=== PATIENT | female | born 1955 | race Caucasian/White ===

== ENCOUNTER → 2016-12-19 | Outpatient (CLI) | payer BC ==
--- NOTE | 2016-12-20 14:34 | MG ---
HISTORY: SCREENING Comparison: November 24, 2015 FINDINGS: Bilateral CC and MLO projections of the right and left breast were obtained. Scattered fibroglandul ar tissue is seen to be present without significant interval change. No suspicious architectural di stortion, mass or clustered microcalcifications can be observed to suggest malignancy. No skin thic kening or nipple retraction is appreciated. No pathological lymphadenopathy can be identified. Gilbert ign-appearing calcifications are noted within the right and left breast. IMPRESSION: NO RADIOGRAPHIC EVIDENCE OF MALIGNANCY. ACR CATEGORY 2 - benign findings. FOLLOW-UP EXAM 1 YEAR. Diagnostic CAD was utilized and reviewed. * 0 (ZERO) - ASSESSMENT INCOMPLETE; ADDITIONAL IMAGING IS NEEDED. * 1/ (ONE) - NEGATIVE. * 2/II (TWO) - BENIGN FINDINGS. * 3/III (THREE) - PROBABLY BENIGN FINDING; SHORT INTERVAL FOLLOW-UP SUGGESTED. * 4/IV (FOUR) - SUSPICIOUS ABNORMALITY; BIOPSY SHOULD BE CONSIDERED. * 5/V (FIVE) - HIGHLY SUSPICIOUS OF MALIGNANCY; BIOPSY SHOULD BE PERFORMED. A NEGATIVE X-RAY REPORT SHOULD NOT DELAY BIOPSY IF A DOMINANT OR CLINICALLY SUSPICIOUS MASS IS PRESENT; 4 TO 8 PERCENT OF CANCERS ARE NOT IDENTIFIED BY X-RAY. A NEG ATIVE REPORT MAY REINFORCE THE CLINICAL IMPRESSION. ADENOSIS AND DENSE BREASTS MAY OBSCURE AN UNDER LYING NEOPLASM. Reported By:
== END ==
LOC: RAD 10:32
PROVIDERS: ATTEND Nurse Practitioner Family
DX: Z00.00 Encounter for general adult medical examination without abnormal findings (principal); Z12.31 Encounter for screening mammogram for malignant neoplasm of breast
CPT/HCPCS: 77067

== ENCOUNTER 2025-02-10 10:55 | Inpatient (IN) ==
[2025-02-10 12:17] LABS: MEAN PLATELET VOLUME 8.4 fL (7.4-11.0); RED CELL DISTRIBUTION WIDTH 13.6 % (11.6-16.5)
[2025-02-10 12:46] LABS: COR CA(FOR HYPOALB) 9.7 mg/dL (8.5-10.1); COR NA(FOR HYPERGLY) 139.0 mmol/L (136-145); CREATININE 2.48 mg/dL (0.55-1.02); eGFR NON BLACK RACES 20.0 (>60)
[2025-02-10] MEDS: NS 500 ML IV 500 ML IV ONE ×2 (13:06→14:58)
--- NOTE | 2025-02-10 13:47 | DR.EXTPAIN ---
HPI Time seen Time Seen by Provider: 02/10/25 11:08 PCP Primary Care Physician: Mariola Whitney Complaint/Symptoms Chief Complaint Doctor Comments: Patient with 1 week of right breast cellulitis extending to the right axilla. Patient's PCP has tried clindamycin and Levaquin. At this time she is taking linezolid and it appears to be improving. Her blood pressure has been a little low. She has had some drainage from the area. Patient states the pain has resolved. Patient did have fever and chills previously. Chief Complaint:: Pt states that about a week ago she noticed redness and tenderness to the right axilla that extended to the right breast. Pt was seen by PCP on 02/03/25 and had the area drained and cultured. Pt was started on Gentamycin cream, Mupirocin ointment, Levaquin 500mg po daily x 10 days, and Linezolid 600mg po BID x 14 days. Despite taking these medications as prescribed the area remains red and does have moderate amount of drainage. Pt states that the pain that was previously in the area has resolved. Pt has had fever and chills. COVID-19 Coronavirus risk:travel/contact w/high risk person: No Has patient experienced Coronavirus symptoms: No Source History Provided: Patient Mode of arrival Mode of Arrival: Ambulatory Timing Onset of Chief Complaint: 02/03/25 PMH PMH Past Medical History: Yes Past Medical History: Dyslipidemia and Hypertension Past Surgical History: Yes Surgical History: and Hysterectomy Family History History of Family Medical Conditions: Yes Family Medical History: Diabetes Mellitus and Hypertension Social History Does patient currently use any type of tobacco product: No Have you used tobacco products in the last 12 months: No Type of Tobacco Use: None Does any household member use tobacco: No Alcohol Use: None Do you use any recreational Drugs:: No Lives With: Family Lives Where: Home Travel Risk Coronavirus risk:travel/contact w/high risk person: No Has patient experienced Coronavirus symptoms: No Infectious screening In the last 2 months have you had wt loss of >10#?: NO Have you had fever, night sweats or hemotysis?: No Have you traveled outside the country in the last 6 months?: No Isolation: Standard ROS Review of Systems Constitutional: See HPI and Fever Eyes: No Symptoms Reported ENTM: No Symptoms Reported Respiratoy: No Symptoms Reported; negative Short of Breath or Wheezing Cardiovascular: No Symptoms Reported; negative Chest Pain, Edema, Palpitations or Syncope Gastrointestinal/Abdominal: No Symptoms Reported Genitourinary: No Symptoms Reported Neurological: No Symptoms Reported Musculoskeletal: No Symptoms Reported Integumentary: See HPI Hematologic/Lymphatic: No Symptoms Reported Endocrine: No Symptoms Reported Psychiatric: No Symptoms Reported All Other Systems: Reviewed and Negative PE Vital Signs Vitals: Vital Signs Temperature 97.7 F Pulse Rate [Left Radial] 79 Pulse Rate [Left Radial] 80 Pulse Rate [Left Radial] 81 Pulse Rate [Left Radial] 89 Pulse Rate [Left Radial] 98 Pulse Rate 109 Respiratory Rate 20 Respiratory Rate 20 Respiratory Rate 16 Respiratory Rate 20 Respiratory Rate 20 Respiratory Rate 20 Blood Pressure [Left Arm] 95/52 Blood Pressure [Left Arm] 92/52 Blood Pressure [Left Arm] 90/51 Blood Pressure [Left Arm] 90/55 Blood Pressure [Left Arm] 125/56 Blood Pressure 85/50 Blood Pressure 99/69 O2 Sat by Pulse Oximetry 98 O2 Sat by Pulse Oximetry 99 O2 Sat by Pulse Oximetry 97 O2 Sat by Pulse Oximetry 97 O2 Sat by Pulse Oximetry 98 O2 Sat by Pulse Oximetry 94 General Limitations: No Limitations General Appearance: Alert and In No Apparent Distress Head Head Exam: Normal Inspection Eyes Eye exam: Normal Appearance ENT ENT Exam: Normal Exam Neck Neck Exam: Normal Inspection Chest Chest Inspection: Normal Inspection Respiratory Respiratory Exam: Normal Lung Sounds Bilat Cardiovascular Cardiovascular Exam: Regular Rate and Normal Rhythm Abdominal Exam Abdominal Exam: Normal Inspection, Normal Bowel Sounds and Soft Extremities Extremities Exam: Normal Inspection Back Back Exam: Normal Inspection Neurological Neurological Exam: Alert, Oriented X3 and CN II-XII Intact Psychiatric Psychiatric Exam: Normal Affect and Normal Mood Skin Skin Exam: Rash (Leyla of cellulitis on the right breast extending to the axilla. No fluctuant abscess palpated. Patient does have small amount of drainage. Area has been marked with marker and area appears to be receding slowly.) COURSE Treatment Treatment: Discussed results of workup with patient. She is agreeable to admission. Consultation Consultation Comments: Discussed case with Dr. Pettit and he is agreeable to admission. ROR Labs Reviewed Laboratory Results Reviewed?: Yes 02/10/25 11:56 02/10/25 11:56 Laboratory: WBC 11.3 X10^3/uL (3.6-10.0) H 02/10/25 11:56 RBC 4.43 X10^6/uL (3.5-5.4) 02/10/25 11:56 Hgb 12.6 g/dL (12.0-16.0) 02/10/25 11:56 Hct 38.3 % (36.0-47.0) 02/10/25 11:56 MCV 86.6 fL (80.0-100.0) 02/10/25 11:56 MCH 28.6 pg (27.0-34.0) 02/10/25 11:56 MCHC 33.0 g/dL (33.0-35.0) 02/10/25 11:56 RDW 13.6 % (11.6-16.5) 02/10/25 11:56 Plt Count 304 X10^3/uL (150.0-450.0) 02/10/25 11:56 MPV 8.4 fL (7.4-11.0) 02/10/25 11:56 Neut % (Auto) 84.5 % (42.0-75.0) H 02/10/25 11:56 Lymph % (Auto) 8.5 % (21.0-51.0) L 02/10/25 11:56 [place]kins % (Auto) 5.8 % (0.0-13.0) 02/10/25 11:56 Eos % (Auto) 0.6 % (0.9-2.9) L 02/10/25 11:56 Baso % (Auto) 0.6 % (0.2-1.0) 02/10/25 11:56 Neut # (Auto) 9.5 x10^3/uL (2.2-4.8) H 02/10/25 11:56 Lymph # (Auto) 1.0 X10^3/uL (1.3-2.9) L 02/10/25 11:56 [place]pkins # (Auto) 0.7 x10^3/uL (0.3-0.8) 02/10/25 11:56 Eos # (Auto) 0.1 x10^3/uL (0.0-0.2) 02/10/25 11:56 Baso # (Auto) 0.1 X10^3/uL (0.0-0.1) 02/10/25 11:56 Absolute Nucleated RBC 0.2 /100WBC 02/10/25 11:56 Sodium 138 mmol/L (136-145) 02/10/25 11:56 Corrected Sodium 139 mmol/L (136-145) 02/10/25 11:56 Potassium 3.8 mmol/L (3.5-5.1) 02/10/25 11:56 Chloride 97 mmol/L (98-107) L 02/10/25 11:56 Carbon Dioxide 28.2 mmol/L (21-32) 02/10/25 11:56 BUN 53 mg/dL (7-18) H 02/10/25 11:56 Creatinine 2.48 mg/dL (0.55-1.02) H 02/10/25 11:56 Est GFR (MDRD) Af Amer 25 (>60) L 02/10/25 11:56 Est GFR (MDRD) Non-Af 20 (>60) L 02/10/25 11:56 Glucose 124 mg/dL (65-99) H 02/10/25 11:56 Lactic Acid 1.7 mmol/L (0.4-2.0) 02/10/25 11:56 Calcium 9.1 mg/dL (8.5-10.1) 02/10/25 11:56 Corrected Calcium 9.7 mg/dL (8.5-10.1) 02/10/25 11:56 Total Bilirubin 0.30 mg/dL (0.2-1.0) 02/10/25 11:56 AST 32 Units/L (15-37) 02/10/25 11:56 ALT 28 Units/L (12-78) 02/10/25 11:56 Alkaline Phosphatase 63 Units/L (46-116) 02/10/25 11:56 Total Protein 7.5 g/dL (6.4-8.2) 02/10/25 11:56 Albumin 3.3 g/dL (3.4-5.0) L 02/10/25 11:56 Globulin 4.2 g/dL (2.5-4.5) 02/10/25 11:56 Albumin/Globulin Ratio 0.8 Ratio (1.1-2.1) L 02/10/25 11:56 Opioid Opioid Risk Tool Age (Isaac box if 16-45): No History of Preadolescent Sexual Abuse: No Total: 0 Total Score Risk Category: Low Risk Copyright: Parish HERNANDEZ predicting aberrant behaviors Discharge Plan Diagnosis Discharge Problem: Cellulitis of breast, Acute kidney injury Discharge Plan Patient Disposition: ADMITTED INPATIENT Condition: Stable Prescriptions: No Action mupirocin [Centany] 2 % ointment 1 applic topical TID MDD 4 10 Days Qty: 22 0RF Rx Instructions: Apply mupirocin and gentamicin ointment after warm compresses 4 times daily as directed with dry sterile dressing. linezolid 600 mg tablet 600 mg PO Q12H MDD 2 14 Days Qty: 28 0RF Rx Instructions: Encourage patient to continue probiotic and daily yogurt - x 14 days - started on 02/04/25 levofloxacin 500 mg tablet 500 mg PO Q24H MDD 1 10 Days Qty: 10 0RF Rx Instructions: x 10 days - started on 02/04/25 amlodipine-benazepril 5-20 mg capsule 1 cap PO QDAY MDD 1 90 Days Qty: 100 3RF Rx Instructions: Stop bottle for employee hydrochlorothiazide 12.5 mg tablet 12.5 mg PO QDAY MDD 1 90 Days Qty: 100 3RF Rx Instructions: Stop bottle per employee rosuvastatin 10 mg tablet 10 mg PO QDAY MDD 1 30 Days Qty: 100 2RF Rx Instructions: Stop bottle for employee gentamicin 0.1 % cream 1 applic TOPICAL BID Patient Comments: [NO ORIGINAL SIG] Rx Instructions: x 10 days - started on 02/03/25 Health Concerns: Post Hospitalization: new medications and changes needed to prevent readmission or further decline. Pt educated and given instructions on all concerns. Plan of Treatment: Continue with present treatment and follow up plan. Pt is to keep follow up appointment as instructed and take medications as ordered. Orders to Discharge Patient Discharge Orders: Transfer (Routine); Ordered 02/10/25 Ordered By: Jad Wiseman Follow ups/Referrals Follow ups/Referrals: KWADWO WHITNEY FNP [Primary Care Provider, MEDICAL] - 3 days Instructions Stand Alone Forms: Find Help Web Site, Post Hospital Follow Up Care Print Language: HEBREW
[2025-02-10] MEDS: ZYVOX 600MG IV 600 MG/300 ML BAG IV SCH (13:59)
[2025-02-10] MEDS ORDERED: CONSULT PHARMACY - POTASSIUM & MAGNESIUM XX SCH (14:50)
[2025-02-10] MEDS ORDERED: ULTRAM PO PRN (14:50)
[2025-02-10] MEDS ORDERED: TYLENOL 325 MG TAB PO PRN (14:50)
[2025-02-10] MEDS ORDERED: NORCO 5/325 MG TAB PO PRN (14:50)
[2025-02-10] MEDS: ZYVOX 600MG IV 600 MG/300 ML BAG IV ONE (14:58)
[2025-02-10] MEDS: NS 1,000 ML IV 1,000 ML IV SCH (15:37)
[2025-02-10] MEDS: BACTROBAN TOPICAL OINT TOP SCH (15:38)
[2025-02-10] MEDS: KLOR-CON 10 MEQ TAB PO NR (15:38)
[2025-02-10 16:08] VITALS: BMI 28.9
[2025-02-11 05:33] LABS: MEAN PLATELET VOLUME 8.2 fL (7.4-11.0); RED CELL DISTRIBUTION WIDTH 13.9 % (11.6-16.5)
[2025-02-11 05:47] LABS: COR CA(FOR HYPOALB) 9.4 mg/dL (8.5-10.1); CREATININE 1.79 mg/dL (0.55-1.02); eGFR NON BLACK RACES 30 (>60)
[2025-02-11] MEDS: CRESTOR TAB 10 MG PO SCH (08:31)
--- NOTE | 2025-02-11 09:33 | DR.H&P ---
H&P History & Physical for Day of: H&P Date: 02/11/25 Chief Complaint Chief Complaint: right breast cellulitis, poor oral intake History of Present Illness History of Present Illness: Ms. Whitney is a 69-year-old female with a past medical history of hypertension, hyperlipidemia who presented with generalized weakness and poor oral intake. She is being treated for right breast cellulitis outpatient with Levaquin and linezolid. She states the redness and swelling has improved. She denies nausea, vomiting or diarrhea. ER workup showed elevated creatinine and WBC. She was started on hydration and IV antibiotics. She is feeling better this morning. Right breast area has been marked and seems to be receding and improving. Labs/imaging reviewed: - WBC 11.7 hemoglobin 11.4 potassium 4.3 BUN 33 creatinine 1.79 - Blood cultures pending - Wound cultures: Coagulase positive staph Plan: Admit to [facility]. Continue IV linezolid. Follow-up pending cultures. Continue dressing change and wound care. Continue hydration. Encourage p.o. intake. Resume home medications. Replace electrolytes as per protocol. Continue pain control. Monitor a.m. labs and imaging. Time spent for clinical assessment, reviewing labs and imaging, physical exam, decision making and documentation greater than 45 minutes. Past Medical History Past Medical History: Dyslipidemia and Hypertension Past Surgical History Surgical History: and Hysterectomy Family History Family Medical History: Diabetes Mellitus, CA and Hypertension Social History Does patient currently use any type of tobacco product: No Have you used tobacco products in the last 12 months: No Type of Tobacco Use: None Does any household member use tobacco: No Alcohol Use: None Drug Use: None Medications Home Medications: Home Medications Medication Instructions Recorded Confirmed Type gentamicin 0.1 % topical cream 1 applic topical BID 02/10/25 History Allergies Allergies Allergy/AdvReac Type Severity Reaction Status Date / Time Penicillins Allergy Unknown Verified 02/10/25 11:23 Labs 02/11/25 05:21 02/11/25 05:21 Labs: 02/10/25 12:15 Axilla - Right Wound Gram Stain - Final 02/10/25 12:15 Axilla - Right Wound Culture - Preliminary Laboratory WBC 11.7 X10^3/uL (3.6-10.0) H 02/11/25 05:21 RBC 3.91 X10^6/uL (3.5-5.4) 02/11/25 05:21 Hgb 11.4 g/dL (12.0-16.0) L 02/11/25 05:21 Hct 34.0 % (36.0-47.0) L 02/11/25 05:21 MCV 86.9 fL (80.0-100.0) 02/11/25 05:21 MCH 29.2 pg (27.0-34.0) 02/11/25 05:21 MCHC 33.7 g/dL (33.0-35.0) 02/11/25 05:21 RDW 13.9 % (11.6-16.5) 02/11/25 05:21 Plt Count 263 X10^3/uL (150.0-450.0) 02/11/25 05:21 MPV 8.2 fL (7.4-11.0) 02/11/25 05:21 Neut % (Auto) 79.7 % (42.0-75.0) H 02/11/25 05:21 Lymph % (Auto) 12.0 % (21.0-51.0) L 02/11/25 05:21 [place] % (Auto) 5.7 % (0.0-13.0) 02/11/25 05:21 Eos % (Auto) 1.8 % (0.9-2.9) 02/11/25 05:21 Baso % (Auto) 0.8 % (0.2-1.0) 02/11/25 05:21 Neut # (Auto) 9.3 x10^3/uL (2.2-4.8) H 02/11/25 05:21 Lymph # (Auto) 1.4 X10^3/uL (1.3-2.9) 02/11/25 05:21 [place] # (Auto) 0.7 x10^3/uL (0.3-0.8) 02/11/25 05:21 Eos # (Auto) 0.2 x10^3/uL (0.0-0.2) 02/11/25 05:21 Baso # (Auto) 0.1 X10^3/uL (0.0-0.1) 02/11/25 05:21 Absolute Nucleated RBC 0.3 /100WBC 02/11/25 05:21 Sodium 139 mmol/L (136-145) 02/11/25 05:21 Corrected Sodium TNP 02/11/25 05:21 Potassium 4.3 mmol/L (3.5-5.1) 02/11/25 05:21 Chloride 104 mmol/L (98-107) 02/11/25 05:21 Carbon Dioxide 29.6 mmol/L (21-32) 02/11/25 05:21 BUN 33 mg/dL (7-18) H 02/11/25 05:21 Creatinine 1.79 mg/dL (0.55-1.02) H 02/11/25 05:21 Est GFR (MDRD) Af Amer 36 (>60) L 02/11/25 05:21 Est GFR (MDRD) Non-Af 30 (>60) L 02/11/25 05:21 Glucose 100 mg/dL (65-99) H 02/11/25 05:21 Lactic Acid 1.7 mmol/L (0.4-2.0) 02/10/25 11:56 Calcium 8.3 mg/dL (8.5-10.1) L 02/11/25 05:21 Corrected Calcium 9.4 mg/dL (8.5-10.1) 02/11/25 05:21 Magnesium 2.2 mg/dL (2.0-2.9) 02/11/25 05:21 Total Bilirubin 0.20 mg/dL (0.2-1.0) 02/11/25 05:21 AST 26 Units/L (15-37) 02/11/25 05:21 ALT 24 Units/L (12-78) 02/11/25 05:21 Alkaline Phosphatase 53 Units/L (46-116) 02/11/25 05:21 Total Protein 6.2 g/dL (6.4-8.2) L 02/11/25 05:21 Albumin 2.6 g/dL (3.4-5.0) L 02/11/25 05:21 Globulin 3.6 g/dL (2.5-4.5) 02/11/25 05:21 Albumin/Globulin Ratio 0.7 Ratio (1.1-2.1) L 02/11/25 05:21 Review of Systems Constitutional: Weakness Eyes: No Symptoms Reported ENT: No Symptoms Reported Respiratory: No Symptoms Reported Cardiovascular: No Symptoms Reported Gastrointestinal: No Symptoms Reported Genitourinary: No Symptoms Reported Musculoskeletal: Arm Pain Skin: Wound Neurological: No Symptoms Reported Physical Exam Vital Signs: Vital Signs Temperature 97.2 F Temperature 97.7 F Pulse Rate [Left Radial] 79 Pulse Rate [Left Radial] 72 Respiratory Rate 18 Respiratory Rate 18 Blood Pressure [Left Arm] 97/55 Blood Pressure [Left Arm] 108/57 O2 Sat by Pulse Oximetry 97 O2 Sat by Pulse Oximetry 96 Oriented: Normal Throat: Normal Respiratory: Clear Throughout Cardiovascular: Normal Auscultation: Bowel Sounds: Normal Palpation: Normal Tenderness: Normal Skin: Red, Tender, Hot, Wound and Other (Right breast area, erythema improving.) Musculoskeletal: Normal Psychiatric: Normal Mood Description: Calm Affect: Normal Speech Pattern: Clear and Appropriate Assessment/Plan (1) Acute kidney injury: Status: Acute (2) Cellulitis of breast: Status: Acute (3) Abscess of right breast: Status: Acute (4) Hyperlipidemia: Qualifiers: Hyperlipidemia type: mixed hyperlipidemia Qualified Code(s): E78.2 - Mixed hyperlipidemia Status: Chronic (5) Essential hypertension with goal blood pressure less than 130/80: Status: Chronic (6) Mild anemia: Status: None Review H&P Reviewed: Yes Patient was examined?: Yes
[2025-02-12 06:02] LABS: MEAN PLATELET VOLUME 8.3 fL (7.4-11.0); RED CELL DISTRIBUTION WIDTH 13.8 % (11.6-16.5)
[2025-02-12 06:10] LABS: COR CA(FOR HYPOALB) 9.2 mg/dL (8.5-10.1); CREATININE 1.28 mg/dL (0.55-1.02); eGFR NON BLACK RACES 44 (>60)
[2025-02-12 10:48] VITALS: BP 114/59; PULSE 72; RESP 18; TEMP 97.7; O2SAT 96
--- NOTE | 2025-02-14 13:15 | W.DIS.FURT ---
Summary of Discharge Discharge Summary of Date Date of Exam: 02/12/25 Admission Date Date of Admission: 02/10/25 Admission Diagnosis Patient Problems (Updated 02/11/25 @ 09:32 by Betzaida Camarillo MD) Acute kidney injury (Acute) N17.9 Cellulitis of breast (Acute) N61.0 Hospital Course: Ms. Montano is a 69-year-old female with a past medical history of hypertension, hyperlipidemia who presented with generalized weakness and poor oral intake. She is being treated for right breast cellulitis outpatient with Levaquin and linezolid. She states the redness and swelling has improved. She denies nausea, vomiting or diarrhea. ER workup showed elevated creatinine and WBC. She was started on hydration and IV antibiotics. She is feeling better this morning. Right breast area has been marked and seems to be receding and improving. Labs are monitored daily and electrolytes replaced as needed. Wound cultures were collected which showed MRSA. She remained on IV linezolid. Her renal function normalized and she was feeling better. She was tolerating p.o. intake and ambulating in the room. She was stable for discharge home on p.o. linezolid which she already has at home. She will follow-up with PCP as scheduled. Vital Signs: Vital Signs (72 hours) 02/10/25 10:05 02/10/25 11:10 02/10/25 11:22 Temperature 97.7 F Pulse Rate 109 H Pulse Rate [Left Radial] 98 H Respiratory Rate 20 20 Blood Pressure 99/69 85/50 Blood Pressure [Left Arm] 125/56 O2 Sat by Pulse Oximetry 94 L 98 Oxygen Delivery Method Room Air Room Air 02/10/25 11:30 02/10/25 12:04 02/10/25 12:18 Temperature Pulse Rate Pulse Rate [Left Radial] 89 81 80 Respiratory Rate 20 16 20 Blood Pressure Blood Pressure [Left Arm] 90/55 90/51 92/52 O2 Sat by Pulse Oximetry 97 97 99 Oxygen Delivery Method Room Air Room Air Room Air 02/10/25 12:30 02/10/25 12:39 02/10/25 12:45 Temperature Pulse Rate 78 Pulse Rate [Left Radial] 79 Respiratory Rate 20 47 H Blood Pressure 95/52 Blood Pressure [Left Arm] 95/52 O2 Sat by Pulse Oximetry 98 98 Oxygen Delivery Method Room Air 02/10/25 12:45 02/10/25 13:00 02/10/25 13:00 Temperature Pulse Rate 77 Pulse Rate [Left Radial] Respiratory Rate 24 Blood Pressure 89/54 89/54 Blood Pressure [Left Arm] O2 Sat by Pulse Oximetry 97 Oxygen Delivery Method 02/10/25 13:00 02/10/25 13:15 02/10/25 13:15 Temperature Pulse Rate 75 75 Pulse Rate [Left Radial] Respiratory Rate 18 14 Blood Pressure 89/51 Blood Pressure [Left Arm] O2 Sat by Pulse Oximetry 98 99 Oxygen Delivery Method 02/10/25 13:30 02/10/25 13:30 02/10/25 13:45 Temperature Pulse Rate 73 Pulse Rate [Left Radial] Respiratory Rate 14 Blood Pressure 90/50 95/50 Blood Pressure [Left Arm] O2 Sat by Pulse Oximetry 98 Oxygen Delivery Method 02/10/25 13:45 02/10/25 14:00 02/10/25 14:00 Temperature Pulse Rate 76 74 Pulse Rate [Left Radial] Respiratory Rate 18 16 Blood Pressure 96/54 Blood Pressure [Left Arm] O2 Sat by Pulse Oximetry 99 99 Oxygen Delivery Method 02/10/25 14:15 02/10/25 16:00 02/10/25 19:00 Temperature 97.5 F L Pulse Rate Pulse Rate [Left Radial] 91 H Respiratory Rate 16 Blood Pressure Blood Pressure [Left Arm] 93/53 O2 Sat by Pulse Oximetry 98 Oxygen Delivery Method Room Air Room Air Room Air 02/10/25 20:00 02/10/25 23:47 02/11/25 04:00 Temperature 97.6 F 97.7 F 97.7 F Pulse Rate Pulse Rate [Left Radial] 72 73 72 Respiratory Rate 17 18 18 Blood Pressure Blood Pressure [Left Arm] 98/63 102/57 108/57 O2 Sat by Pulse Oximetry 97 98 96 Oxygen Delivery Method Room Air Room Air Room Air 02/11/25 07:00 02/11/25 08:00 02/11/25 12:00 Temperature 97.2 F L 97.9 F Pulse Rate Pulse Rate [Left Radial] 79 72 Respiratory Rate 18 20 Blood Pressure Blood Pressure [Left Arm] 97/55 99/55 O2 Sat by Pulse Oximetry 97 98 Oxygen Delivery Method Room Air Room Air Room Air 02/11/25 16:00 02/11/25 19:00 02/11/25 20:00 Temperature 98.2 F 98.0 F Pulse Rate Pulse Rate [Left Radial] 75 75 Respiratory Rate 20 19 Blood Pressure Blood Pressure [Left Arm] 99/57 111/57 O2 Sat by Pulse Oximetry 98 96 Oxygen Delivery Method Room Air Room Air Room Air 02/12/25 00:00 02/12/25 04:00 Temperature 97.8 F 97.5 F L Pulse Rate Pulse Rate [Left Radial] 80 71 Respiratory Rate 19 19 Blood Pressure Blood Pressure [Left Arm] 116/63 117/63 O2 Sat by Pulse Oximetry 96 95 Oxygen Delivery Method Room Air Room Air Labs: Laboratory Last Values WBC 9.5 X10^3/uL (3.6-10.0) 02/12/25 05:28 RBC 3.79 X10^6/uL (3.5-5.4) 02/12/25 05:28 Hgb 11.3 g/dL (12.0-16.0) L 02/12/25 05:28 Hct 33.0 % (36.0-47.0) L 02/12/25 05:28 MCV 87.1 fL (80.0-100.0) 02/12/25 05:28 MCH 29.9 pg (27.0-34.0) 02/12/25 05:28 MCHC 34.3 g/dL (33.0-35.0) 02/12/25 05:28 RDW 13.8 % (11.6-16.5) 02/12/25 05:28 Plt Count 240 X10^3/uL (150.0-450.0) 02/12/25 05:28 MPV 8.3 fL (7.4-11.0) 02/12/25 05:28 Neut % (Auto) 77.3 % (42.0-75.0) H 02/12/25 05:28 Lymph % (Auto) 14.0 % (21.0-51.0) L 02/12/25 05:28 [place] % (Auto) 5.2 % (0.0-13.0) 02/12/25 05:28 Eos % (Auto) 2.6 % (0.9-2.9) 02/12/25 05:28 Baso % (Auto) 0.9 % (0.2-1.0) 02/12/25 05:28 Neut # (Auto) 7.4 x10^3/uL (2.2-4.8) H 02/12/25 05:28 Lymph # (Auto) 1.3 X10^3/uL (1.3-2.9) 02/12/25 05:28 [place] # (Auto) 0.5 x10^3/uL (0.3-0.8) 02/12/25 05:28 Eos # (Auto) 0.3 x10^3/uL (0.0-0.2) H 02/12/25 05:28 Baso # (Auto) 0.1 X10^3/uL (0.0-0.1) 02/12/25 05:28 Absolute Nucleated RBC 0.0 /100WBC 02/12/25 05:28 Sodium 141 mmol/L (136-145) 02/12/25 05:28 Corrected Sodium TNP 02/12/25 05:28 Potassium 4.4 mmol/L (3.5-5.1) 02/12/25 05:28 Chloride 105 mmol/L (98-107) 02/12/25 05:28 Carbon Dioxide 27.1 mmol/L (21-32) 02/12/25 05:28 BUN 19 mg/dL (7-18) H 02/12/25 05:28 Creatinine 1.28 mg/dL (0.55-1.02) H 02/12/25 05:28 Est GFR (MDRD) Af Amer 53 (>60) L 02/12/25 05:28 Est GFR (MDRD) Non-Af 44 (>60) L 02/12/25 05:28 Glucose 87 mg/dL (65-99) 02/12/25 05:28 Lactic Acid 1.7 mmol/L (0.4-2.0) 02/10/25 11:56 Calcium 8.1 mg/dL (8.5-10.1) L 02/12/25 05:28 Corrected Calcium 9.2 mg/dL (8.5-10.1) 02/12/25 05:28 Magnesium 2.2 mg/dL (2.0-2.9) 02/11/25 05:21 Total Bilirubin 0.20 mg/dL (0.2-1.0) 02/12/25 05:28 AST 22 Units/L (15-37) 02/12/25 05:28 ALT 23 Units/L (12-78) 02/12/25 05:28 Alkaline Phosphatase 53 Units/L (46-116) 02/12/25 05:28 Total Protein 6.0 g/dL (6.4-8.2) L 02/12/25 05:28 Albumin 2.6 g/dL (3.4-5.0) L 02/12/25 05:28 Globulin 3.4 g/dL (2.5-4.5) 02/12/25 05:28 Albumin/Globulin Ratio 0.8 Ratio (1.1-2.1) L 02/12/25 05:28 Reason For Visit: BREAST CELLULITIS, ACUTE KIDNEY INJURY, HYPOTENSIO Discharge Diagnosis All Active Problems (Updated 02/11/25 @ 09:32 by Betzaida Camarillo MD) Acute kidney injury (Acute) Cellulitis of breast (Acute) Abscess of right breast (Acute) Cellulitis and abscess of other specified site (Acute) Osteopenia determined by x-ray (Chronic) Osteoporosis, post-menopausal (Acute) Hyperlipidemia (Chronic) Elevated low density lipoprotein (LDL) cholesterol level (Chronic) Elevated liver enzymes (Acute) Essential hypertension with goal blood pressure less than 130/80 (Chronic) History of gastroesophageal reflux (GERD) (Chronic) Plan of Treatment: Continue with present treatment and follow up plan. Pt is to keep follow up appointment as instructed and take medications as ordered. Discharge Medications Discharge Medications: Penicillins Allergy (Unknown, Verified 02/10/25 11:23) Discharge Disposition Discharge Disposition: To home Discharge Condition: Stable Discharge Plan Discharge Plan Hospital Course: Ms. Montano is a 69-year-old female with a past medical history of hypertension, hyperlipidemia who presented with generalized weakness and poor oral intake. She is being treated for right breast cellulitis outpatient with Levaquin and linezolid. She states the redness and swelling has improved. She denies nausea, vomiting or diarrhea. ER workup showed elevated creatinine and WBC. She was started on hydration and IV antibiotics. She is feeling better this morning. Right breast area has been marked and seems to be receding and improving. Labs are monitored daily and electrolytes replaced as needed. Wound cultures were collected which showed MRSA. She remained on IV linezolid. Her renal function normalized and she was feeling better. She was tolerating p.o. intake and ambulating in the room. She was stable for discharge home on p.o. linezolid which she already has at home. She will follow-up with PCP as scheduled. Patient Disposition: 01 HOME, SELF-CARE Condition: Stable Health Concerns: Post Hospitalization: new medications and changes needed to prevent readmission or further decline. Pt educated and given instructions on all concerns. Care Plan Goals: Problem: Pain/Alteration in Comfort Goal: Improve/ Resolve Pain; Achieve Pain Tolerance Instructions: Take pain medications as prescribed. Contact your primary care provider if your pain is unrelieved or worsens. Follow up with primary care provider as directed. Plan of Treatment: Continue with present treatment and follow up plan. Pt is to keep follow up appointment as instructed and take medications as ordered. Prescription drug monitoring program results: PDMP reviewed and no concerns identified Prescriptions: Continued mupirocin [Centany] 2 % ointment 1 applic topical TID MDD 4 10 Days Qty: 22 0RF Rx Instructions: Apply mupirocin and gentamicin ointment after warm compresses 4 times daily as directed with dry sterile dressing. linezolid 600 mg tablet 600 mg PO Q12H MDD 2 14 Days Qty: 28 0RF Rx Instructions: Encourage patient to continue probiotic and daily yogurt - x 14 days - started on 02/04/25 amlodipine-benazepril 5-20 mg capsule 1 cap PO QDAY MDD 1 90 Days Qty: 100 3RF Rx Instructions: Stop bottle for employee hydrochlorothiazide 12.5 mg tablet 12.5 mg PO QDAY MDD 1 90 Days Qty: 100 3RF Rx Instructions: Stop bottle per employee rosuvastatin 10 mg tablet 10 mg PO QDAY MDD 1 30 Days Qty: 100 2RF Rx Instructions: Stop bottle for employee Discontinued levofloxacin 500 mg tablet 500 mg PO Q24H MDD 1 10 Days Qty: 10 0RF Rx Instructions: x 10 days - started on 02/04/25 gentamicin 0.1 % cream 1 applic TOPICAL BID Patient Comments: [NO ORIGINAL SIG] Rx Instructions: x 10 days - started on 02/03/25 Follow ups/Referrals Follow ups/Referrals: KWADWO MONTANO FNP [Primary Care Provider, MEDICAL] - 02/17/25 1:00 pm Instructions Instructions: Skin Abscess, Cellulitis, Adult, Skin Abscess, [id number] Activity Restrictions/Additional Instructions: Continue linezolid, complete as prescribed. Stand Alone Forms: Excuse From Work or School, Find Help Web Site, Post Hospital Follow Up Care Print Language: [id number]
== END 2025-02-12 11:20 | disposition home or self-care (01) | DRG 683 ==
LOC: ER 11:00 → MED/SURG 13:58
PROVIDERS: ADMIT Family Medicine; ATTEND Family Medicine
DX: D72.828 Other elevated white blood cell count; N61.1 Abscess of the breast and nipple; Z16.12 Extended spectrum beta lactamase (ESBL) resistance; N17.8 Other acute kidney failure; I95.89 Other hypotension; D64.89 Other specified anemias; R94.4 Abnormal results of kidney function studies; Z29.89 Encounter for other specified prophylactic measures; L03.111 Cellulitis of right axilla; B96.89 Other specified bacterial agents as the cause of diseases classified elsewhere; E86.0 Dehydration; B95.62 Methicillin resistant Staphylococcus aureus infection as the cause of diseases classified elsewhere; E83.51 Hypocalcemia; R26.89 Other abnormalities of gait and mobility; I10 Essential (primary) hypertension; Z16.29 Resistance to other single specified antibiotic; Z16.23 Resistance to quinolones and fluoroquinolones; E78.2 Mixed hyperlipidemia